=== PATIENT | female | born 2000 | race Caucasian/White ===

== ENCOUNTER → 2022-03-19 10:12 | Outpatient (CLI) | payer OTHER, SELFPAY ==
[2022-03-20 15:41] LABS: Hepatitis B Surface Antigen NEGATIVE s/c (NEGATIVE)
[2022-03-20 15:55] LABS: HIV 1 & 2 Ab/Ag 4th Gen Combo NEGATIVE (NEGATIVE); Hep C Virus Ab w/Reflex Quant NEGATIVE s/c (NEGATIVE)
[2022-03-21 10:17] LABS: Var-Zoster Immunity Screen 434 index (Immune >165)
[2022-03-22 08:31] LABS: RPR Screen Non Reactive (Non Reactive)
== END ==
PROVIDERS: PCP Physician Assistant; Referring Provider Obstetrics & Gynecology; Visit Provider Obstetrics & Gynecology
DX: N91.2 Amenorrhea, unspecified (principal)
CPT/HCPCS: 36415; 86592; 86762; 86787; 86803; 86850; 86900; 86901; 87340; 87389